=== PATIENT | female | born 2000 | race Caucasian/White ===

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

== ENCOUNTER → 2022-09-09 | Outpatient (CLI) | payer BC ==
--- NOTE | 2022-09-09 15:58 | P.SLEEP ---
History of Present Illness H&P Date: 09/09/22 Chief Complaint: Loud snoring This is a very pleasant 21-year-old female patient was referred to me for sleep apnea evaluation. 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 The patient lives in [facility]. As such, the patient has been commuting back and forth to work. 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 The patient at times fall asleep on the way to work and on her way back. Nevertheless, she is quite alert and awake during the day. She does not fall asleep during working hours and she has not done any formal judgment errors because of feeling drowsy or sleepy. She is known to have loud snoring. She is living with her parents. She has been told by family members to have a loud snorer. nausea of any witnessed apneas. She has chronic issues with TMJ and grinding. She is morbidly obese pH she suffers from cystic ovary disease. Her weight is up over the years and she has gained weight since her high school years. No witnessed apneas. Does not wake up choking or gasping for air. She goes to bed between 8 PM and 9:30 PM and she gets out of bed at 3:45 AM in the morning. On weekends, she goes to bed at around midnight and she wakes up between 8 and 10 AM in the morning. She averages more than 7 hours of sleep. Her current [place] score is at 6. No sleep paralysis. No hallucinations. No cataplexy. No naps during the day. No substance abuse. No alcoholism. No smoking. Does not utilize any form of an energy drinks. Several other family members noted the house. No family history of obstructive sleep apnea. No major comorbidities. No anxiety. No depression. No head trauma. Review of Systems Constitutional: Reports weight gain Eyes: denies as per HPI, denies blurred vision, denies bulging eye, denies decreased vision, denies diplopia, denies discharge, denies dry eye, denies irritation, denies itching, denies pain, denies photophobia, denies loss of peripheral vision, denies loss of vision, denies tunnel vision/blind spots Ears: deny: decreased hearing, ear discharge, earache, tinnitus Ears, nose, mouth and throat: Reports as per HPI Breasts: absent: as per HPI, change in shape, gynecomastia, masses, nipple discharge, pain, skin changes, swelling Cardiovascular: Reports as per HPI Respiratory: Reports snoring Gastrointestinal: Reports as per HPI Genitourinary: Reports as per HPI Menstruation: Reports as per HPI Musculoskeletal: absent: ankle pain, ankle stiffness, ankle swelling, as per HPI, elbow pain, elbow stiffness, elbow swelling, foot pain, foot stiffness, foot swelling, hand pain, hand stiffness, hand swelling, hip pain, hip stiffness, hip swelling, knee pain, knee stiffness, knee swelling, shoulder pain, shoulder stiffness, shoulder swelling, wrist pain, wrist stiffness, wrist swelling Integumentary: Reports as per HPI Neurological: Reports as per HPI Psychiatric: Reports as per HPI Endocrine: Reports as per HPI Past Medical History Additional Past Medical History / Comment(s): headaches, seasonal allergies, polycystic ovary disease, grinding of the teeth History of Any Multi-Drug Resistant Organisms: None Reported Additional Past Surgical History / Comment(s): Eye doctor/tear duct surgery Past Psychological History: No Psychological Hx Reported Past Alcohol Use History: None Reported Past Drug Use History: None Reported Medications and Allergies Home Medications and Allergies Comment(s): Vitamin D3, ALLERGY pills [id number], metformin twice a day, baclofen, melatonin 5 mg and as needed and control pills. Allergies Allergy/AdvReac Type Severity Reaction Status Date / Time Penicillins Allergy Unknown Verified 09/10/16 00:17 mold AdvReac Cough Verified 09/10/16 00:17 Physical Exam BP is 148/63, pulse is 99, respirations 16, temperature is 97.2, pulse ox is 98% on room air oxygen. The patient's height is 5 feet and 5 inches, weight is 332 pounds in a body mass index is 55.2. Her current [place] score is at 6. The size of the neck is 16. Gen. appearance the patient is obese, calm and comfortable and she is not in acute respiratory distress.The patient appeared well nourished and normally developed. Vital signs as documented. Head exam is unremarkable. No scleral icterus or corneal arcus noted. Neck is without jugular venous distension, thyromegaly, or carotid bruits. Carotid upstrokes are brisk bilaterally. Lungs are clear to auscultation and percussion. Cardiac exam reveals the PMI to be normally sized and situated. Rhythm is regular. First and second heart sounds normal. No murmurs, rubs or gallops. Abdominal exam reveals normal bowel sounds, no masses, no organomegaly and no aortic enlargement. Extremities are nonedematous and both femoral and pedal pulses are normal.Examination of the skin revealed no evidence of significant rashes, suspicious appearing nevi or other concerning lesions.Neurologically, the patient is awake and alert and the patient does not have any focal neurological deficit. Cranial nerves are essentially intact. Assessment and Plan Plan: Loud snoring with low clinical suspicion for obstructive sleep apnea Limited fatigue and sleepiness with an [place] score of 6 Morbid obesity with a history of weight gain over the years. Current body mass index is 55.2 Polycystic ovary syndrome ALLERGIC rhinitis TMJ with history of grinding of teeth Plan I expect to the patient that my overall clinical suspicion for sleep apnea was low despite her snoring symptoms and obesity We'll do a home sleep study evaluation to evaluate this patient for sleep apnea Encourage weight loss We'll encourage the patient be seen by a dentist and considered a bite guard regarding her TMJ symptoms and grinding Maintain regular sleep schedule Maintain good sleep hygiene measures We'll make further recommendations based on the results of the sleep study. Sleep Note - Sleep Note Sleep Note: Temperature: Pulse Rate: Respiratory Rate: Blood Pressure: SpO2: Height: Weight: BMI: Neck Circumference:
== END ==
LOC: SLEEP 13:31
PROVIDERS: ATTEND Internal Medicine Critical Care Medicine
DX: G47.33 Obstructive sleep apnea (adult) (pediatric) (principal); E66.01 Morbid (severe) obesity due to excess calories; Z68.43 Body mass index [BMI] 50.0-59.9, adult; R53.83 Other fatigue; E28.2 Polycystic ovarian syndrome; J30.9 Allergic rhinitis, unspecified; Z88.0 Allergy status to penicillin; Z91.048 Other nonmedicinal substance allergy status
CPT/HCPCS: 99202

== ENCOUNTER → 2022-10-18 | Outpatient (CLI) | payer BC ==
[2022-10-19 08:20] LABS: Basophils # (A) 0.07 X 10*3/uL (0.00-0.10); Basophils % (A) 0.9 %; Eosinophils % (A) 3.9 %; HGB 12.9 d/dL (12.0-15.0); Lymphocytes # (A) 2.06 X 10*3/uL (0.90-5.00); Lymphocytes % (A) 26.8 %; MCH 26.5 pg (27.0-32.0); MCHC 31.5 d/dL (32.0-37.0); MCV 84.2 FL (80.0-97.0); Mean Platelet Volume 10.8 FL (9.5-12.2); Monocytes # (A) 0.52 X 10*3/uL (0.20-1.00); Monocytes % (A) 6.8 %; NRBC Per 100 WBC 0 X 10*3/uL (0.00-0.01); Neutrophils # (A) 4.71 X 10*3/uL (1.80-7.70); Neutrophils % (A) 61.3 %; Platelet Count 284 X 10*3/uL (140-440); RBC 4.87 X 10*6/uL (4.10-5.20); RDW 14.7 % (11.5-14.5); WBC 7.68 X 10*3/uL (4.50-10.00)
[2022-10-19 08:47] LABS: ALT 29 U/L (8-44); AST 19 U/L (13-35); Albumin 4.1 d/dL (3.8-4.9); Albumin/Globulin Ratio 2.05 Ratio (1.60-3.17); Alkaline Phosphatase 45 U/L (41-126); BUN/Creat Ratio 8.12 Ratio (12.00-20.00); Blood Urea Nitrogen 6.5 mg/dL (9.0-27.0); Calcium 9.6 mg/dL (8.7-10.3); Carbon Dioxide 26.5 mmol/L (21.6-31.8); Chloride 108 mmol/L (96-109); Chol/HDL Ratio 5.22 Ratio; Glucose 88 mg/dL (70-110); LDL Cholesterol,Calculated 143.2 mg/dL (0.0-131.0); Potassium 4.2 mmol/L (3.5-5.5); Sodium 143 mmol/L (135-145); Total Bilirubin 0.3 mg/dL (0.3-1.2); Total Protein 6.1 d/dL (6.2-8.2)
== END | disposition home or self-care (01) ==
LOC: LABWHC1 09:30
PROVIDERS: ATTEND Physician Assistant
DX: Z00.01 Encounter for general adult medical examination with abnormal findings (principal); Z13.220 Encounter for screening for lipoid disorders; E55.9 Vitamin D deficiency, unspecified
CPT/HCPCS: 36415; 80053; 80061; 82306; 85025